=== PATIENT | male | born 1955 | race African-American/Black ===

== ENCOUNTER → 2016-11-22 | Outpatient (CLI) | payer MEDICARE, MEDICAID ==
[~2016-11-22] MED LIST: AMLO10TA4 PO; ASPI-1159 PO; CALC667C4 PO; CALCIUM; CLON0.2T PO; COLC0.6T66 PO; DOCU-138 PO; HYDR-4135 PO; LISI40TA4 PO; MELO-106 PO; METO25TA6 PO; METO50TA5 PO; NEPVIT PO
== END | disposition home or self-care (01) ==
LOC: RAD 13:23
PROVIDERS: ATTEND Internal Medicine Nephrology
DX: J18.9 Pneumonia, unspecified organism (principal)
CPT/HCPCS: 71010

== ENCOUNTER 2018-06-02 13:31 | Inpatient (IN) | payer MEDICARE, MEDICAID ==
[~2018-06-02] VITALS: Ht 185.4 cm; Wt 117.9 kg
[~2018-06-02 13:31] MED LIST changes: +METO-539 PO; -METO50TA5 PO
[2018-06-02] MEDS ORDERED: ALBUTEROL (0.083%) 2.5MG/3ML NEB HHN STA (16:06)
[2018-06-02] MEDS ORDERED: IPRATROPIUM BROMIDE (0.02%) 0.5MG/2.5ML NEB HHN STA (16:06)
[2018-06-02] MEDS ORDERED: METHYLPREDNISOLONE SOD SUCC 125 MG/2 ML VIAL IV STA (16:06)
[2018-06-02] MEDS ORDERED: MAGNESIUM 2 G PREMIX 50 ML IV ONE (16:15)
[2018-06-02 16:29] LABS: HEMATOCRIT. 32.7 % (42.0-52.0); HEMOGLOBIN. 10.6 g/dL (14.0-18.0); MEAN CORPUSCULAR HEMOGLOBIN 28.7 pg (28.0-32.0); MEAN CORPUSCULAR VOLUME 88.4 fL (80.0-94.0); MEAN PLATELET VOLUME 7.4 fl (7.4-10.4); PLATELET 211 x1000/uL (130-400); RED CELL DISTRIBUTION WIDTH 18.6 % (11.6-14.6)
[2018-06-02 16:33] LABS: PROTHROMBIN TIME 10.7 sec (9.6-11.0)
[2018-06-02 16:34] LABS: CHLORIDE 104 mEq/L (98-107)
[2018-06-02 16:52] LABS: PLATELET ESTIMATE NORMAL
[2018-06-02 21:24] LABS: CLARITY URINE CLEAR (CLEAR); COLOR URINE YELLOW (YELLOW); KETONES URINE NEGATIVE (NEGATIVE); LEUKOCYTE ESTERASE URINE NEGATIVE (NEGATIVE); NITRITE URINE NEGATIVE (NEGATIVE); OCCULT BLOOD URINE NEGATIVE (NEGATIVE); PH URINE 6.5 (4.5-8.0); PROTEIN URINE 3+ (NEGATIVE); SPECIFIC GRAVITY URINE 1.017 (1.005-1.030)
[2018-06-02] MEDS ORDERED: ENOXAPARIN 40MG/0.4ML SYR SUBCUT SCH (22:30)
[2018-06-02] MEDS ORDERED: ONDANSETRON HCL 4MG/2ML INJ IV PRN (22:30)
[2018-06-02] MEDS ORDERED: LISINOPRIL 40MG TABLET PO SCH (22:30)
[2018-06-02] MEDS ORDERED: HYDROCODONE/ACETAMINOPHEN 5/325MG TABLET PO PRN (22:30)
[2018-06-02] MEDS ORDERED: ZOLPIDEM TARTRATE 5MG TABLET PO PRN (22:30)
[2018-06-02] MEDS ORDERED: ACETAMINOPHEN 325MG TABLET PO PRN (22:30)
[2018-06-03 00:45] VITALS: BP 157/98
[2018-06-03] MEDS ORDERED: SODIUM CHLORIDE 0.9% 1,000 ML IV SCH (00:53)
[2018-06-03 02:00] VITALS: BP 157/98
[2018-06-03] MEDS: METHYLPREDNISOLONE SOD SUCC 125 MG/2 ML VIAL IV SCH ×4 (02:17→20:34)
[2018-06-03] MEDS: CEFTRIAXONE 1 G PREMIX 50 ML IV SCH (02:17)
[2018-06-03] MEDS: IPRATROPIUM/ALBUTEROL 0.5-3(2.5)MG/3ML NEB INH PRN (02:19)
[2018-06-03] MEDS: AZITHROMYCIN 500 MG in DEXT 5% WATER 250 ML IV SCH (03:01)
[2018-06-03 04:00] VITALS: BP 169/96
[2018-06-03] MEDS ORDERED: CLON0.1T PO (04:57)
[2018-06-03] MEDS ORDERED: LEFL20TA17 PO (04:57)
[2018-06-03] MEDS ORDERED: CHOL200074 PO (04:57)
[2018-06-03] MEDS ORDERED: METO25TA6 PO (04:57)
[2018-06-03] MEDS ORDERED: FOLI0.8T42 PO (04:57)
[2018-06-03] MEDS ORDERED: SODI650T PO (04:57)
[2018-06-03] MEDS ORDERED: LOSA50TA20 PO (04:57)
[2018-06-03] MEDS ORDERED: PRED5TAB PO (04:57)
[2018-06-03 08:00] VITALS: BP 151/86
[2018-06-03 08:38] LABS: *AMPHETAMINES SCREEN URINE NEGATIVE (NEGATIVE); *BARBITURATES SCREEN URINE NEGATIVE (NEGATIVE); *BENZODIAZEPINES SCREEN URINE NEGATIVE (NEGATIVE); *COCAINE SCREEN URINE NEGATIVE (NEGATIVE); METHADONE URINE SCREEN NEGATIVE (NEGATIVE); OPIATES URINE SCREEN PRESUMTIVE POSITIVE (NEGATIVE)
[2018-06-03 08:39] LABS: CANNABINOID URINE SCREEN NEGATIVE (NEGATIVE); PHENCYCLIDINE URINE SCREEN NEGATIVE (NEGATIVE)
[2018-06-03] MEDS: FOLIC ACID/VITAMIN B COMP W-C TABLET PO SCH (08:41)
[2018-06-03] MEDS: COLCHICINE 0.6MG TABLET PO SCH (08:41)
[2018-06-03] MEDS: ASPIRIN 81MG EC TABLET PO SCH (08:41)
[2018-06-03] MEDS: THIAMINE HCL 100MG TABLET PO SCH (08:41)
[2018-06-03] MEDS: AMLODIPINE 10MG TABLET PO SCH (08:42)
[2018-06-03] MEDS: FOLIC ACID 1MG TABLET PO SCH (08:42)
[2018-06-03] MEDS ORDERED: ENOXAPARIN 40MG/0.4ML SYR SUBCUT SCH (09:00)
[2018-06-03] MEDS ORDERED: AMLODIPINE 10MG TABLET PO SCH (09:00)
[2018-06-03 13:10] LABS: CHLORIDE 99 mEq/L (98-107)
[2018-06-03] MEDS: LEFLUNOMIDE 20MG TABLET PO SCH (15:55)
[2018-06-03 15:58] VITALS: BP 160/91
[2018-06-03] MEDS ORDERED: LISINOPRIL 40MG TABLET PO SCH (18:00)
[2018-06-03 20:00] VITALS: BP 154/84
[2018-06-03] MEDS: CLONIDINE 0.1MG TABLET PO SCH (20:34)
[2018-06-03] MEDS ORDERED: GUAIFENESIN/CODEINE 100-10MG/5ML UDC PO PRN (23:45)
[2018-06-04] VITALS: BP 160/94
[2018-06-04] MEDS: IPRATROPIUM/ALBUTEROL 0.5-3(2.5)MG/3ML NEB INH PRN (01:17)
[2018-06-04] MEDS: CEFTRIAXONE 1 G PREMIX 50 ML IV SCH (01:20)
[2018-06-04] MEDS: METHYLPREDNISOLONE SOD SUCC 125 MG/2 ML VIAL IV SCH ×3 (01:20→14:51)
[2018-06-04] MEDS: AZITHROMYCIN 500 MG in DEXT 5% WATER 250 ML IV SCH (02:04)
[2018-06-04 06:02] LABS: HEMATOCRIT. 30.8 % (42.0-52.0); HEMOGLOBIN. 9.9 g/dL (14.0-18.0); MEAN CORPUSCULAR HEMOGLOBIN 28.5 pg (28.0-32.0); MEAN CORPUSCULAR VOLUME 88.7 fL (80.0-94.0); MEAN PLATELET VOLUME 7.9 fl (7.4-10.4); PLATELET 229 x1000/uL (130-400); RED BLOOD CELL COUNT 3.47 mill/uL (4.7-6.1); RED CELL DISTRIBUTION WIDTH 18.5 % (11.6-14.6)
[2018-06-04 06:53] LABS: PHOSPHORUS 4.1 mg/dL (2.5-4.9)
[2018-06-04 07:48] VITALS: BP 169/99
[2018-06-04] MEDS: LEFLUNOMIDE 20MG TABLET PO SCH (08:11)
[2018-06-04] MEDS: CLONIDINE 0.1MG TABLET PO SCH (08:12)
[2018-06-04] MEDS: FOLIC ACID/VITAMIN B COMP W-C TABLET PO SCH (08:13)
[2018-06-04] MEDS: AMLODIPINE 10MG TABLET PO SCH (08:13)
[2018-06-04] MEDS: THIAMINE HCL 100MG TABLET PO SCH (08:13)
[2018-06-04] MEDS: FOLIC ACID 1MG TABLET PO SCH (08:14)
[2018-06-04] MEDS: ASPIRIN 81MG EC TABLET PO SCH (08:14)
[2018-06-04] MEDS: COLCHICINE 0.6MG TABLET PO SCH (08:14)
[2018-06-04] MEDS ORDERED: ENOXAPARIN 30MG/0.3ML SYR SUBCUT SCH (09:00)
[2018-06-04 12:30] VITALS: BP 180/103
[2018-06-04] MEDS ORDERED: CLONIDINE 0.1MG TABLET PO PRN (13:15)
[2018-06-04] MEDS ORDERED: LACTULOSE 20G/30ML UDC PO SCH (14:00)
[2018-06-04] MEDS ORDERED: MAGNESIUM/ALUMINUM HYDROXIDE/SIMETHICONE 30ML UDC PO PRN (15:30)
[2018-06-04] MEDS ORDERED: DEXTROSE 50% WATER 50ML SYRINGE IV PRN ×2 (15:45)
[2018-06-04] MEDS ORDERED: METOPROLOL TARTRATE PO SCH (16:30)
[2018-06-04] MEDS ORDERED: LOSARTAN POTASSIUM PO SCH (16:30)
[2018-06-04] MEDS ORDERED: BLOOD SUGAR DIAGNOSTIC STRIP TEST SCH (16:45)
[2018-06-04 16:58] LABS: PLATELET ESTIMATE NORMAL
[2018-06-04] MEDS ORDERED: CLONIDINE 0.2MG TABLET PO SCH (17:00)
[2018-06-04] MEDS ORDERED: INSULIN LISPRO 100 UNITS/ML SUBCUT SCH (17:15)
[2018-06-04 17:30] VITALS: BP 150/85
[2018-06-04] MEDS ORDERED: SODIUM BICARBONATE 650 MG TABLET PO SCH (18:00)
[2018-06-04] MEDS ORDERED: IPRATROPIUM/ALBUTEROL 0.5-3(2.5)MG/3ML NEB HHN SCH (18:00)
[2018-06-04] MEDS ORDERED: GUAIFENESIN 600MG ER TABLET PO SCH (21:00)
[2018-06-04] MEDS ORDERED: METOPROLOL TARTRATE 25MG TABLET PO SCH ×2 (21:00)
[2018-06-04] MEDS ORDERED: HYDRALAZINE HCL 50MG TABLET PO SCH (22:00)
[2018-06-04] MEDS ORDERED: INSULIN GLARGINE UD 100 UNITS/ML SYR SUBCUT SCH (22:00)
[2018-06-05] MEDS ORDERED: PREDNISONE 5MG TABLET PO SCH (09:00)
[2018-06-05] MEDS ORDERED: PANTOPRAZOLE SODIUM 40 MG/VIAL IV SCH (09:00)
[2018-06-05] MEDS ORDERED: LOSARTAN POTASSIUM 50 MG TABLET PO SCH (18:00)
== END 2018-06-04 18:00 | disposition home or self-care (01) | DRG 189 ==
LOC: ER 13:31 → 5WST 16:56 → EDBEDREQ 16:58 → EDBEDREQTM 16:58 → ENRESERV 22:26
PROVIDERS: ADMIT Internal Medicine Nephrology; ATTEND Internal Medicine Nephrology
DX: J96.00 Acute respiratory failure, unspecified whether with hypoxia or hypercapnia (principal); J44.1 Chronic obstructive pulmonary disease with (acute) exacerbation; Z94.0 Kidney transplant status; I13.0 Hypertensive heart and chronic kidney disease with heart failure and stage 1 through stage 4 chronic kidney disease, or unspecified chronic kidney disease; I50.40 Unspecified combined systolic (congestive) and diastolic (congestive) heart failure; D64.9 Anemia, unspecified; Z87.891 Personal history of nicotine dependence; N18.9 Chronic kidney disease, unspecified; R73.9 Hyperglycemia, unspecified; T38.0X5A Adverse effect of glucocorticoids and synthetic analogues, initial encounter; Y92.89 Other specified places as the place of occurrence of the external cause; R74.0 Nonspecific elevation of levels of transaminase and lactic acid dehydrogenase [LDH]; Z82.49 Family history of ischemic heart disease and other diseases of the circulatory system
CPT/HCPCS: 36415; 71045; 80048; 80305; 82962; 83036; 83605; 83735; 83880; 84100; 84484; 87804; 93005; 93306; 94640; 96365; 96366; 99285; J0456; J0696; J1650; J2930; J3475; J7060; J7611; J7620

== ENCOUNTER 2018-10-04 13:35 | Inpatient (IN) | payer MEDICARE, MEDICAID ==
[~2018-10-04] VITALS: Ht 182.9 cm; Wt 133.8 kg
[~2018-10-04 13:35] MED LIST changes: -ASPI-1159 PO; +ASPI-1393 PO; -CALC667C4 PO; -CALCIUM; +CHOL200074 PO; +CLON0.1T PO; -CLON0.2T PO; -DOCU-138 PO; +FOLI0.8T42 PO; -HYDR-4135 PO; +LEFL20TA17 PO; +LOSA50TA41 PO; -MELO-106 PO; -METO-539 PO; +PRED5TAB PO; +SODI650T PO
[2018-10-04] MEDS ORDERED: ASPIRIN 81MG TABLET PO ONE (16:00)
[2018-10-04 16:38] LABS: HEMATOCRIT. 35.2 % (42.0-52.0); HEMOGLOBIN. 11.5 g/dL (14.0-18.0); MEAN CORPUSCULAR HEMOGLOBIN 30.3 pg (28.0-32.0); MEAN CORPUSCULAR VOLUME 92.8 fL (80.0-94.0); MEAN PLATELET VOLUME 7.9 fl (7.4-10.4); PLATELET 113 x1000/uL (130-400); RED BLOOD CELL COUNT 3.79 mill/uL (4.7-6.1); RED CELL DISTRIBUTION WIDTH 20.2 % (11.6-14.6)
[2018-10-04 16:43] LABS: PARTIAL THROMBOPLASTIN TIME 25.7 sec (23.4-31.0); PROTHROMBIN TIME 10.5 sec (9.6-11.0)
[2018-10-04 16:44] LABS: CHLORIDE 103 mEq/L (98-107)
[2018-10-04] MEDS ORDERED: MORPHINE SULFATE 4 MG/ML CPJ (NOT FOR IM USE) IV ONE (16:45)
[2018-10-04] MEDS ORDERED: ONDANSETRON HCL 4MG/2ML INJ IV ONE (16:45)
[2018-10-04 17:58] LABS: NUCLEATED RED BLOOD CELLS 2 /100 WBC; PLATELET ESTIMATE SLIGHTLY DECREASED
[2018-10-04 20:30] LABS: CLARITY URINE CLEAR (CLEAR); COLOR URINE YELLOW (YELLOW); KETONES URINE NEGATIVE (NEGATIVE); LEUKOCYTE ESTERASE URINE NEGATIVE (NEGATIVE); NITRITE URINE NEGATIVE (NEGATIVE); OCCULT BLOOD URINE NEGATIVE (NEGATIVE); PROTEIN URINE 2+ (NEGATIVE); UROBILINOGEN URINE 0.2 E.U./dL (0.2-1.0)
[2018-10-04 23:00] VITALS: BP 173/92
[2018-10-04] MEDS ORDERED: ONDANSETRON HCL 4MG/2ML INJ IV PRN (23:00)
[2018-10-04] MEDS ORDERED: HYDROCODONE/ACETAMINOPHEN 5/325MG TABLET PO PRN (23:00)
[2018-10-04 23:04] VITALS: BP 173/92
[2018-10-05] VITALS (8 sets, daily range): BP systolic 127–164; BP diastolic 81–99
[2018-10-05] MEDS: THIAMINE HCL 100MG TABLET PO SCH ×2 (00:21→10:18)
[2018-10-05] MEDS: AMLODIPINE 10MG TABLET PO SCH ×2 (00:22→08:59)
[2018-10-05] MEDS: SODIUM CHLORIDE 0.9% 1,000 ML IV SCH ×3 (00:23→18:33)
[2018-10-05] MEDS: FOLIC ACID/VITAMIN B COMP W-C TABLET PO SCH (08:58)
[2018-10-05] MEDS: CLONIDINE 0.1MG TABLET PO SCH ×2 (08:59→18:34)
[2018-10-05] MEDS: LOSARTAN POTASSIUM 100 MG TABLET PO SCH (08:59)
[2018-10-05] MEDS: PREDNISONE 5MG TABLET PO SCH (08:59)
[2018-10-05] MEDS ORDERED: LISINOPRIL 40MG TABLET PO SCH ×2 (09:00→18:00)
[2018-10-05] MEDS: ENOXAPARIN 40MG/0.4ML SYR SUBCUT SCH (09:00)
[2018-10-05] MEDS: LEFLUNOMIDE 20MG TABLET PO SCH (09:00)
[2018-10-05] MEDS: MORPHINE SULFATE 4 MG/ML CPJ (NOT FOR IM USE) IV PRN ×2 (16:01→21:27)
[2018-10-05 16:32] LABS: *AMPHETAMINES SCREEN URINE NEGATIVE (NEGATIVE); *BARBITURATES SCREEN URINE NEGATIVE (NEGATIVE); *BENZODIAZEPINES SCREEN URINE NEGATIVE (NEGATIVE); *COCAINE SCREEN URINE NEGATIVE (NEGATIVE); METHADONE URINE SCREEN NEGATIVE (NEGATIVE)
[2018-10-05 16:37] LABS: OPIATES URINE SCREEN PRESUMTIVE POSITIVE (NEGATIVE); PHENCYCLIDINE URINE SCREEN NEGATIVE (NEGATIVE)
[2018-10-05 16:38] LABS: CANNABINOID URINE SCREEN NEGATIVE (NEGATIVE)
[2018-10-05] MEDS: BACLOFEN 10MG TABLET PO SCH (18:34)
[2018-10-05] MEDS ORDERED: IOHEXOL-350 100 ML BOTTLE ONE (19:08)
[2018-10-05 20:51] LABS: BASOPHILS % 0.5 % (0.0-2.0); EOSINOPHILS % 0.3 % (0.0-5.0); HEMATOCRIT. 33.3 % (42.0-52.0); LYMPHOCYTES % 8.5 % (20.0-50.0); MEAN CORPUSCULAR VOLUME 91.1 fL (80.0-94.0); MEAN PLATELET VOLUME 8.1 fl (7.4-10.4); NEUTROPHILS % 80.7 % (40.0-76.0); PLATELET 114 x1000/uL (130-400); RED BLOOD CELL COUNT 3.66 mill/uL (4.7-6.1); RED CELL DISTRIBUTION WIDTH 19.4 % (11.6-14.6)
[2018-10-05] MEDS: DOCUSATE SODIUM 100MG CAPSULE PO SCH (21:10)
[2018-10-05 21:17] LABS: CHLORIDE 103 mEq/L (98-107)
[2018-10-05 21:22] LABS: AMYLASE 130 IU/L (25-115)
[2018-10-06] VITALS (8 sets, daily range): BP systolic 141–180; BP diastolic 82–100
[2018-10-06] MEDS: SODIUM CHLORIDE 0.9% 1,000 ML IV SCH ×2 (00:24→11:36)
[2018-10-06] MEDS: BACLOFEN 10MG TABLET PO SCH ×3 (02:19→17:31)
[2018-10-06] MEDS: LACTULOSE 20G/30ML UDC PO SCH ×3 (05:09→21:26)
[2018-10-06 06:42] LABS: BASOPHILS % 0.6 % (0.0-2.0); EOSINOPHILS % 0.9 % (0.0-5.0); HEMATOCRIT. 32.1 % (42.0-52.0); HEMOGLOBIN. 10.8 g/dL (14.0-18.0); LYMPHOCYTES % 13.7 % (20.0-50.0); MEAN CORPUSCULAR HEMOGLOBIN 30.5 pg (28.0-32.0); MEAN CORPUSCULAR VOLUME 90.7 fL (80.0-94.0); MEAN PLATELET VOLUME 7.9 fl (7.4-10.4); NEUTROPHILS % 71.8 % (40.0-76.0); PLATELET 107 x1000/uL (130-400); RED BLOOD CELL COUNT 3.54 mill/uL (4.7-6.1); RED CELL DISTRIBUTION WIDTH 19.7 % (11.6-14.6)
[2018-10-06] MEDS: FOLIC ACID/VITAMIN B COMP W-C TABLET PO SCH (08:42)
[2018-10-06] MEDS: ENOXAPARIN 40MG/0.4ML SYR SUBCUT SCH (08:43)
[2018-10-06] MEDS: AMLODIPINE 10MG TABLET PO SCH (08:43)
[2018-10-06] MEDS: PREDNISONE 5MG TABLET PO SCH (08:43)
[2018-10-06] MEDS: CLONIDINE 0.1MG TABLET PO SCH ×2 (08:43→17:31)
[2018-10-06] MEDS: DOCUSATE SODIUM 100MG CAPSULE PO SCH ×2 (08:43→17:31)
[2018-10-06] MEDS: THIAMINE HCL 100MG TABLET PO SCH (08:48)
[2018-10-06] MEDS: LOSARTAN POTASSIUM 100 MG TABLET PO SCH (08:48)
[2018-10-06] MEDS: MORPHINE SULFATE 4 MG/ML CPJ (NOT FOR IM USE) IV PRN ×2 (09:28→18:55)
[2018-10-06] MEDS: LEFLUNOMIDE 20MG TABLET PO SCH (10:30)
[2018-10-06] MEDS: LIDOCAINE 5% PATCH TOP SCH (21:24)
[2018-10-06] MEDS ORDERED: GABAPENTIN 100MG CAPSULE PO SCH (22:00)
[2018-10-07] VITALS (10 sets, daily range): BP systolic 135–180; BP diastolic 79–111
[2018-10-07] MEDS: MORPHINE SULFATE 4 MG/ML CPJ (NOT FOR IM USE) IV PRN ×2 (01:05→15:45)
[2018-10-07] MEDS: GABAPENTIN 100MG CAPSULE PO SCH ×3 (05:22→20:56)
[2018-10-07] MEDS: ACYCLOVIR 200MG CAPSULE PO SCH ×3 (05:26→20:57)
[2018-10-07] MEDS ORDERED: ONDANSETRON HCL 4MG/2ML INJ IV PRN (06:00)
[2018-10-07] MEDS: AMLODIPINE 10MG TABLET PO SCH ×2 (06:37→09:00)
[2018-10-07 08:00] LABS: BASOPHILS % 0.6 % (0.0-2.0); EOSINOPHILS % 1.1 % (0.0-5.0); HEMATOCRIT. 34.1 % (42.0-52.0); HEMOGLOBIN. 11.2 g/dL (14.0-18.0); MEAN CORPUSCULAR HEMOGLOBIN 30.1 pg (28.0-32.0); MEAN CORPUSCULAR VOLUME 91.5 fL (80.0-94.0); MEAN PLATELET VOLUME 8.1 fl (7.4-10.4); MONOCYTES % 12.4 % (2.0-8.0); NEUTROPHILS % 72.9 % (40.0-76.0); PLATELET 114 x1000/uL (130-400); RED BLOOD CELL COUNT 3.72 mill/uL (4.7-6.1); RED CELL DISTRIBUTION WIDTH 20.1 % (11.6-14.6)
[2018-10-07] MEDS: LOSARTAN POTASSIUM 100 MG TABLET PO SCH (08:28)
[2018-10-07] MEDS: FOLIC ACID/VITAMIN B COMP W-C TABLET PO SCH (08:28)
[2018-10-07] MEDS: PREDNISONE 5MG TABLET PO SCH (08:28)
[2018-10-07] MEDS: DOCUSATE SODIUM 100MG CAPSULE PO SCH ×2 (08:28→17:44)
[2018-10-07] MEDS: CLONIDINE 0.1MG TABLET PO SCH ×2 (08:29→17:48)
[2018-10-07] MEDS: LEFLUNOMIDE 20MG TABLET PO SCH (08:37)
[2018-10-07] MEDS: LIDOCAINE 5% PATCH TOP SCH (08:42)
[2018-10-07] MEDS ORDERED: METOPROLOL TARTRATE 25MG TABLET PO SCH (09:00)
[2018-10-07] MEDS ORDERED: CLONIDINE 0.1MG TABLET PO PRN (10:45)
[2018-10-07] MEDS: FUROSEMIDE 40MG/4ML VIAL IVP SCH (12:01)
[2018-10-07] MEDS: METOPROLOL TARTRATE 50MG TABLET PO SCH (20:57)
[2018-10-08] VITALS (12 sets, daily range): BP systolic 129–169; BP diastolic 74–105
[2018-10-08] MEDS: GABAPENTIN 100MG CAPSULE PO SCH ×3 (05:27→21:12)
[2018-10-08] MEDS: ACYCLOVIR 200MG CAPSULE PO SCH ×3 (05:27→21:11)
[2018-10-08] MEDS: MORPHINE SULFATE 4 MG/ML CPJ (NOT FOR IM USE) IV PRN (05:28)
[2018-10-08] MEDS: LIDOCAINE 5% PATCH TOP SCH (09:21)
[2018-10-08] MEDS: FUROSEMIDE 40MG/4ML VIAL IVP SCH (09:21)
[2018-10-08] MEDS: LEFLUNOMIDE 20MG TABLET PO SCH (09:21)
[2018-10-08] MEDS: PREDNISONE 5MG TABLET PO SCH (09:21)
[2018-10-08] MEDS: FOLIC ACID/VITAMIN B COMP W-C TABLET PO SCH (09:21)
[2018-10-08] MEDS: AMLODIPINE 10MG TABLET PO SCH (09:22)
[2018-10-08] MEDS: CLONIDINE 0.1MG TABLET PO SCH ×2 (09:22→17:44)
[2018-10-08] MEDS: LOSARTAN POTASSIUM 100 MG TABLET PO SCH (09:22)
[2018-10-08] MEDS: DOCUSATE SODIUM 100MG CAPSULE PO SCH ×2 (09:22→17:44)
[2018-10-08] MEDS: METOPROLOL TARTRATE 50MG TABLET PO SCH ×2 (09:22→20:32)
[2018-10-09] VITALS (11 sets, daily range): BP systolic 115–150; BP diastolic 70–100
[2018-10-09] MEDS: ACYCLOVIR 200MG CAPSULE PO SCH ×2 (05:48→13:44)
[2018-10-09] MEDS: GABAPENTIN 100MG CAPSULE PO SCH ×2 (05:48→13:45)
[2018-10-09 06:52] LABS: BASOPHILS % 1.1 % (0.0-2.0); EOSINOPHILS % 0.8 % (0.0-5.0); HEMATOCRIT. 35.6 % (42.0-52.0); LYMPHOCYTES % 13.2 % (20.0-50.0); MEAN CORPUSCULAR HEMOGLOBIN 30.5 pg (28.0-32.0); MEAN CORPUSCULAR VOLUME 90.4 fL (80.0-94.0); MEAN PLATELET VOLUME 7.6 fl (7.4-10.4); MONOCYTES % 12.2 % (2.0-8.0); NEUTROPHILS % 72.7 % (40.0-76.0); PLATELET 120 x1000/uL (130-400); RED BLOOD CELL COUNT 3.94 mill/uL (4.7-6.1); RED CELL DISTRIBUTION WIDTH 18.9 % (11.6-14.6)
[2018-10-09] MEDS: FOLIC ACID/VITAMIN B COMP W-C TABLET PO SCH (08:19)
[2018-10-09] MEDS: METOPROLOL TARTRATE 50MG TABLET PO SCH (08:19)
[2018-10-09] MEDS: LOSARTAN POTASSIUM 100 MG TABLET PO SCH (08:20)
[2018-10-09] MEDS: AMLODIPINE 10MG TABLET PO SCH (08:20)
[2018-10-09] MEDS: DOCUSATE SODIUM 100MG CAPSULE PO SCH ×2 (08:20→17:52)
[2018-10-09] MEDS: CLONIDINE 0.1MG TABLET PO SCH ×2 (08:20→17:53)
[2018-10-09] MEDS: PREDNISONE 5MG TABLET PO SCH (08:20)
[2018-10-09] MEDS: FUROSEMIDE 40MG/4ML VIAL IVP SCH (08:20)
[2018-10-09] MEDS: LIDOCAINE 5% PATCH TOP SCH (08:21)
[2018-10-09] MEDS: LEFLUNOMIDE 20MG TABLET PO SCH (08:21)
[2018-10-09] MEDS: MORPHINE SULFATE 4 MG/ML CPJ (NOT FOR IM USE) IV PRN (09:14)
[2018-10-09] MEDS ORDERED: HYDROCODONE/ACETAMINOPHEN 5/325MG TABLET PO PRN (12:45)
== END 2018-10-09 09:00 | DRG 551 ==
LOC: ER 14:00 → 5WST 18:32 → EDBEDREQ 18:34 → ENRESERV 21:43 → 5EST 10-05 17:45
PROVIDERS: ADMIT Internal Medicine Nephrology; ATTEND Internal Medicine Nephrology
DX: M48.061 Spinal stenosis, lumbar region without neurogenic claudication (principal); N17.0 Acute kidney failure with tubular necrosis; Z94.0 Kidney transplant status; G82.20 Paraplegia, unspecified; Z68.41 Body mass index [BMI] 40.0-44.9, adult; N18.3 Chronic kidney disease, stage 3 (moderate); E66.01 Morbid (severe) obesity due to excess calories; D69.6 Thrombocytopenia, unspecified; G89.4 Chronic pain syndrome; I13.10 Hypertensive heart and chronic kidney disease without heart failure, with stage 1 through stage 4 chronic kidney disease, or unspecified chronic kidney disease; L60.3 Nail dystrophy; M51.16 Intervertebral disc disorders with radiculopathy, lumbar region; R26.9 Unspecified abnormalities of gait and mobility; Z82.49 Family history of ischemic heart disease and other diseases of the circulatory system
CPT/HCPCS: 36415; 71045; 71275; 72146; 72148; 74018; 80048; 80305; 81003; 82150; 83735; 83880; 84484; 93005; 93306; 93970; 96374; 97162; 97166; 99285; J1650; J1940; J2270; J2405; J7030; J7512; Q9967

== ENCOUNTER 2018-10-09 19:00 | Inpatient (IN) | payer MEDICARE, MEDICAID ==
[~2018-10-09] VITALS: Ht 128.9 cm; Wt 133.8 kg
[2018-10-09 19:00] VITALS: BP 137/90
[2018-10-09 20:00] VITALS: BP 137/90
[2018-10-09] MEDS ORDERED: CLONIDINE 0.1MG TABLET PO PRN (21:00)
[2018-10-09] MEDS ORDERED: ONDANSETRON HCL 4MG/2ML INJ IV PRN (21:00)
[2018-10-09] MEDS ORDERED: ACYCLOVIR 200MG CAPSULE PO SCH (22:00)
[2018-10-09] MEDS: ACYCLOVIR 400 MG TABLET PO SCH (22:22)
[2018-10-09] MEDS: GABAPENTIN 100MG CAPSULE PO SCH (22:22)
[2018-10-09] MEDS: METOPROLOL TARTRATE 50MG TABLET PO SCH (22:23)
[2018-10-09] MEDS: HYDROCODONE/ACETAMINOPHEN 5/325MG TABLET PO PRN (22:23)
[2018-10-10] MEDS: ACYCLOVIR 400 MG TABLET PO SCH ×3 (05:19→22:32)
[2018-10-10] MEDS: GABAPENTIN 100MG CAPSULE PO SCH ×3 (05:19→21:41)
[2018-10-10] MEDS: HYDROCODONE/ACETAMINOPHEN 5/325MG TABLET PO PRN ×2 (05:24→22:33)
[2018-10-10 08:00] LABS: BASOPHILS % 0.8 % (0.0-2.0); HEMOGLOBIN. 11.8 g/dL (14.0-18.0); LYMPHOCYTES % 13.8 % (20.0-50.0); MEAN CORPUSCULAR HEMOGLOBIN 29.9 pg (28.0-32.0); MEAN CORPUSCULAR VOLUME 90.9 fL (80.0-94.0); MEAN PLATELET VOLUME 7.7 fl (7.4-10.4); NEUTROPHILS % 73.4 % (40.0-76.0); PLATELET 126 x1000/uL (130-400); RED BLOOD CELL COUNT 3.96 mill/uL (4.7-6.1); RED CELL DISTRIBUTION WIDTH 19.8 % (11.6-14.6)
[2018-10-10 08:01] LABS: CHLORIDE 101 mEq/L (98-107)
[2018-10-10] MEDS: LEFLUNOMIDE 20MG TABLET PO SCH (08:10)
[2018-10-10] MEDS: LOSARTAN POTASSIUM 100 MG TABLET PO SCH (08:10)
[2018-10-10] MEDS: CLONIDINE 0.1MG TABLET PO SCH ×2 (08:11→16:21)
[2018-10-10] MEDS: FUROSEMIDE 40MG TABLET PO SCH (08:11)
[2018-10-10] MEDS: AMLODIPINE 10MG TABLET PO SCH (08:12)
[2018-10-10] MEDS: DOCUSATE SODIUM 100MG CAPSULE PO SCH ×2 (08:12→16:26)
[2018-10-10] MEDS: FOLIC ACID/VITAMIN B COMP W-C TABLET PO SCH (08:12)
[2018-10-10] MEDS: METOPROLOL TARTRATE 50MG TABLET PO SCH ×2 (08:13→21:42)
[2018-10-10] MEDS: PREDNISONE 5MG TABLET PO SCH (08:13)
[2018-10-10] MEDS: LIDOCAINE 5% PATCH TOP SCH (08:13)
[2018-10-10 08:28] VITALS: BP 178/100
[2018-10-10] MEDS ORDERED: FUROSEMIDE 40MG/4ML VIAL IVP SCH (09:00)
[2018-10-10 09:42] VITALS: BP 136/79
[2018-10-10] MEDS: LACTULOSE 20G/30ML UDC PO SCH ×2 (10:45→14:19)
[2018-10-10 20:00] VITALS: BP 138/81
[2018-10-10] MEDS: POLYETHYLENE GLYCOL 3350 (17GM) 1 DOSE PACK PO SCH (21:00)
[2018-10-10] MEDS: LACTULOSE 20G/30ML UDC PO PRN (21:42)
[2018-10-11] MEDS: HYDROCODONE/ACETAMINOPHEN 5/325MG TABLET PO PRN (02:51)
[2018-10-11] MEDS: GABAPENTIN 100MG CAPSULE PO SCH ×3 (06:17→21:15)
[2018-10-11] MEDS: ACYCLOVIR 400 MG TABLET PO SCH ×3 (06:19→21:30)
[2018-10-11 07:49] VITALS: BP 161/93
[2018-10-11] MEDS: LEFLUNOMIDE 20MG TABLET PO SCH (08:14)
[2018-10-11] MEDS: METOPROLOL TARTRATE 50MG TABLET PO SCH ×2 (08:15→21:16)
[2018-10-11] MEDS: FOLIC ACID/VITAMIN B COMP W-C TABLET PO SCH (08:15)
[2018-10-11] MEDS: PREDNISONE 5MG TABLET PO SCH (08:15)
[2018-10-11] MEDS: DOCUSATE SODIUM 100MG CAPSULE PO SCH ×2 (08:15→17:14)
[2018-10-11] MEDS: LOSARTAN POTASSIUM 100 MG TABLET PO SCH (08:15)
[2018-10-11] MEDS: CLONIDINE 0.1MG TABLET PO SCH ×2 (08:15→17:13)
[2018-10-11] MEDS: FUROSEMIDE 40MG TABLET PO SCH (08:16)
[2018-10-11] MEDS: LIDOCAINE 5% PATCH TOP SCH (08:16)
[2018-10-11] MEDS: AMLODIPINE 10MG TABLET PO SCH (08:16)
[2018-10-11] MEDS ORDERED: LIDOCAINE 5% PATCH TOP NR (12:45)
[2018-10-11 20:00] VITALS: BP 149/86
[2018-10-11] MEDS: LACTULOSE 20G/30ML UDC PO PRN (21:15)
[2018-10-11] MEDS: POLYETHYLENE GLYCOL 3350 (17GM) 1 DOSE PACK PO SCH (21:15)
[2018-10-12] MEDS: GABAPENTIN 100MG CAPSULE PO SCH ×3 (05:33→21:22)
[2018-10-12] MEDS: ACYCLOVIR 400 MG TABLET PO SCH ×3 (05:33→21:59)
[2018-10-12 06:29] LABS: BASOPHILS % 0.7 % (0.0-2.0); EOSINOPHILS % 1.3 % (0.0-5.0); HEMATOCRIT. 32.7 % (42.0-52.0); HEMOGLOBIN. 10.9 g/dL (14.0-18.0); LYMPHOCYTES % 10.2 % (20.0-50.0); MEAN CORPUSCULAR HEMOGLOBIN 30.3 pg (28.0-32.0); MEAN CORPUSCULAR VOLUME 91.3 fL (80.0-94.0); MEAN PLATELET VOLUME 7.9 fl (7.4-10.4); MONOCYTES % 12.2 % (2.0-8.0); NEUTROPHILS % 75.6 % (40.0-76.0); PLATELET 136 x1000/uL (130-400); RED BLOOD CELL COUNT 3.58 mill/uL (4.7-6.1); RED CELL DISTRIBUTION WIDTH 19.3 % (11.6-14.6)
[2018-10-12 06:38] LABS: PHOSPHORUS 4.6 mg/dL (2.5-4.9)
[2018-10-12 07:16] LABS: VITAMIN B12 SERUM 1299 pg/mL (211-911)
[2018-10-12 07:19] LABS: FOLIC ACID (FOLATE) SERUM > 20.00 ng/mL (>5.38)
[2018-10-12 07:47] LABS: FERRITIN 2747 ng/mL (22-322)
[2018-10-12 08:00] VITALS: BP 175/95
[2018-10-12] MEDS: LIDOCAINE 5% PATCH TOP SCH (08:05)
[2018-10-12] MEDS: DOCUSATE SODIUM 100MG CAPSULE PO SCH ×2 (08:05→16:31)
[2018-10-12] MEDS: PREDNISONE 5MG TABLET PO SCH (08:05)
[2018-10-12] MEDS: AMLODIPINE 10MG TABLET PO SCH (08:06)
[2018-10-12] MEDS: FOLIC ACID/VITAMIN B COMP W-C TABLET PO SCH (08:06)
[2018-10-12] MEDS: CLONIDINE 0.1MG TABLET PO SCH ×3 (08:06→16:31)
[2018-10-12] MEDS: FUROSEMIDE 40MG TABLET PO SCH (08:06)
[2018-10-12] MEDS: LOSARTAN POTASSIUM 100 MG TABLET PO SCH (08:06)
[2018-10-12] MEDS: METOPROLOL TARTRATE 50MG TABLET PO SCH ×2 (08:07→21:23)
[2018-10-12] MEDS: HYDROCODONE/ACETAMINOPHEN 10/325MG TABLET PO PRN (08:07)
[2018-10-12] MEDS: LEFLUNOMIDE 20MG TABLET PO SCH (08:10)
[2018-10-12 11:31] VITALS: BP 116/73
[2018-10-12 13:38] VITALS: BP 139/76
[2018-10-12 20:00] VITALS: BP 143/86
[2018-10-12] MEDS: POLYETHYLENE GLYCOL 3350 (17GM) 1 DOSE PACK PO SCH (21:22)
[2018-10-12] MEDS: LACTULOSE 20G/30ML UDC PO PRN (21:22)
[2018-10-13] MEDS: GABAPENTIN 100MG CAPSULE PO SCH ×3 (05:40→20:26)
[2018-10-13] MEDS: ACYCLOVIR 400 MG TABLET PO SCH ×3 (05:40→20:26)
[2018-10-13 08:00] VITALS: BP 178/97
[2018-10-13] MEDS: HYDROCODONE/ACETAMINOPHEN 10/325MG TABLET PO PRN (08:38)
[2018-10-13] MEDS: LEFLUNOMIDE 20MG TABLET PO SCH (08:38)
[2018-10-13] MEDS: METOPROLOL TARTRATE 50MG TABLET PO SCH ×2 (08:39→20:27)
[2018-10-13] MEDS: CLONIDINE 0.1MG TABLET PO SCH ×3 (08:39→16:56)
[2018-10-13] MEDS: FOLIC ACID/VITAMIN B COMP W-C TABLET PO SCH (08:39)
[2018-10-13] MEDS: FUROSEMIDE 40MG TABLET PO SCH (08:39)
[2018-10-13] MEDS: LOSARTAN POTASSIUM 100 MG TABLET PO SCH (08:39)
[2018-10-13] MEDS: DOCUSATE SODIUM 100MG CAPSULE PO SCH ×2 (08:40→16:56)
[2018-10-13] MEDS: PREDNISONE 5MG TABLET PO SCH (08:40)
[2018-10-13] MEDS: AMLODIPINE 10MG TABLET PO SCH (08:40)
[2018-10-13] MEDS: LIDOCAINE 5% PATCH TOP SCH (09:39)
[2018-10-13 20:00] VITALS: BP 139/83
[2018-10-13] MEDS: POLYETHYLENE GLYCOL 3350 (17GM) 1 DOSE PACK PO SCH (20:26)
[2018-10-13] MEDS: LACTULOSE 20G/30ML UDC PO PRN (20:26)
[2018-10-14] MEDS: GABAPENTIN 100MG CAPSULE PO SCH ×3 (06:16→22:03)
[2018-10-14 08:00] VITALS: BP 146/88
[2018-10-14] MEDS: LIDOCAINE 5% PATCH TOP SCH (09:14)
[2018-10-14] MEDS: HYDROCODONE/ACETAMINOPHEN 5/325MG TABLET PO PRN (09:15)
[2018-10-14] MEDS: FOLIC ACID/VITAMIN B COMP W-C TABLET PO SCH (09:16)
[2018-10-14] MEDS: PREDNISONE 5MG TABLET PO SCH (09:16)
[2018-10-14] MEDS: FUROSEMIDE 40MG TABLET PO SCH (09:16)
[2018-10-14] MEDS: AMLODIPINE 10MG TABLET PO SCH (09:16)
[2018-10-14] MEDS: METOPROLOL TARTRATE 50MG TABLET PO SCH ×2 (09:16→20:38)
[2018-10-14] MEDS: LOSARTAN POTASSIUM 100 MG TABLET PO SCH (09:16)
[2018-10-14] MEDS: DOCUSATE SODIUM 100MG CAPSULE PO SCH ×2 (09:16→16:48)
[2018-10-14] MEDS: ACYCLOVIR 400 MG TABLET PO SCH ×3 (09:17→22:02)
[2018-10-14] MEDS: LEFLUNOMIDE 20MG TABLET PO SCH (09:17)
[2018-10-14] MEDS: CLONIDINE 0.1MG TABLET PO SCH ×3 (09:23→16:48)
[2018-10-14] MEDS ORDERED: HYDROCODONE/ACETAMINOPHEN 5/325MG TABLET PO PRN (17:00)
[2018-10-14 20:00] VITALS: BP 143/87
[2018-10-14] MEDS: POLYETHYLENE GLYCOL 3350 (17GM) 1 DOSE PACK PO SCH (20:37)
[2018-10-14] MEDS: HYDROCODONE/ACETAMINOPHEN 10/325MG TABLET PO PRN (22:08)
[2018-10-15] MEDS: ACYCLOVIR 400 MG TABLET PO SCH ×3 (05:53→21:32)
[2018-10-15] MEDS: GABAPENTIN 100MG CAPSULE PO SCH ×3 (05:54→21:33)
[2018-10-15 06:55] LABS: BASOPHILS % 0.8 % (0.0-2.0); EOSINOPHILS % 1.3 % (0.0-5.0); HEMOGLOBIN. 11.6 g/dL (14.0-18.0); LYMPHOCYTES % 12.5 % (20.0-50.0); MEAN CORPUSCULAR HEMOGLOBIN 30.4 pg (28.0-32.0); MEAN CORPUSCULAR VOLUME 91.6 fL (80.0-94.0); MEAN PLATELET VOLUME 7.8 fl (7.4-10.4); MONOCYTES % 12.1 % (2.0-8.0); NEUTROPHILS % 73.3 % (40.0-76.0); PLATELET 127 x1000/uL (130-400); RED BLOOD CELL COUNT 3.82 mill/uL (4.7-6.1); RED CELL DISTRIBUTION WIDTH 19.4 % (11.6-14.6)
[2018-10-15 08:00] VITALS: BP 158/87
[2018-10-15] MEDS: LIDOCAINE 5% PATCH TOP SCH (08:59)
[2018-10-15] MEDS: FUROSEMIDE 40MG TABLET PO SCH (09:00)
[2018-10-15] MEDS: DOCUSATE SODIUM 100MG CAPSULE PO SCH ×2 (09:00→16:59)
[2018-10-15] MEDS: CLONIDINE 0.1MG TABLET PO SCH ×3 (09:00→16:59)
[2018-10-15] MEDS: LOSARTAN POTASSIUM 100 MG TABLET PO SCH (09:00)
[2018-10-15] MEDS: PREDNISONE 5MG TABLET PO SCH (09:01)
[2018-10-15] MEDS: AMLODIPINE 10MG TABLET PO SCH (09:01)
[2018-10-15] MEDS: METOPROLOL TARTRATE 50MG TABLET PO SCH ×2 (09:02→21:34)
[2018-10-15] MEDS: FOLIC ACID/VITAMIN B COMP W-C TABLET PO SCH (09:02)
[2018-10-15] MEDS: LEFLUNOMIDE 20MG TABLET PO SCH (09:23)
[2018-10-15] MEDS: HYDROCODONE/ACETAMINOPHEN 10/325MG TABLET PO PRN ×2 (09:24→21:33)
[2018-10-15 20:00] VITALS: BP 139/86
[2018-10-15] MEDS: POLYETHYLENE GLYCOL 3350 (17GM) 1 DOSE PACK PO SCH (21:00)
[2018-10-15] MEDS: LACTULOSE 20G/30ML UDC PO PRN (21:39)
[2018-10-16] MEDS: GABAPENTIN 100MG CAPSULE PO SCH ×3 (06:48→21:31)
[2018-10-16] MEDS: ACYCLOVIR 400 MG TABLET PO SCH ×3 (06:48→21:31)
[2018-10-16] MEDS: HYDROCODONE/ACETAMINOPHEN 10/325MG TABLET PO PRN ×2 (06:52→22:30)
[2018-10-16 07:30] VITALS: BP 140/80
[2018-10-16] MEDS ORDERED: PNEUMOCOCCAL 23-VAL P-SAC VAC 0.5 ML IM ONE (09:00)
[2018-10-16] MEDS: DOCUSATE SODIUM 100MG CAPSULE PO SCH ×2 (11:17→17:25)
[2018-10-16] MEDS: AMLODIPINE 10MG TABLET PO SCH (11:17)
[2018-10-16] MEDS: FOLIC ACID/VITAMIN B COMP W-C TABLET PO SCH (11:17)
[2018-10-16] MEDS: METOPROLOL TARTRATE 50MG TABLET PO SCH ×2 (11:18→21:32)
[2018-10-16] MEDS: PREDNISONE 5MG TABLET PO SCH (11:18)
[2018-10-16] MEDS: LOSARTAN POTASSIUM 100 MG TABLET PO SCH (11:19)
[2018-10-16] MEDS: CLONIDINE 0.1MG TABLET PO SCH ×3 (11:19→17:28)
[2018-10-16] MEDS: LIDOCAINE 5% PATCH TOP SCH (11:22)
[2018-10-16] MEDS: LEFLUNOMIDE 20MG TABLET PO SCH (11:26)
[2018-10-16] MEDS ORDERED: BISACODYL 5MG TABLET PO PRN (13:30)
[2018-10-16] MEDS: FUROSEMIDE 40MG TABLET PO SCH (17:25)
[2018-10-16 19:13] LABS: 25-HYDROXY VITAMIN D3 46 ng/mL (.)
[2018-10-16 20:00] VITALS: BP 147/86
[2018-10-16] MEDS: POLYETHYLENE GLYCOL 3350 (17GM) 1 DOSE PACK PO SCH (21:00)
[2018-10-16] MEDS: LACTULOSE 20G/30ML UDC PO PRN (21:34)
[2018-10-17] MEDS: ACYCLOVIR 400 MG TABLET PO SCH ×2 (06:24→14:06)
[2018-10-17] MEDS: GABAPENTIN 100MG CAPSULE PO SCH ×2 (06:25→14:07)
[2018-10-17] MEDS: FUROSEMIDE 40MG TABLET PO SCH (06:25)
[2018-10-17 08:00] VITALS: BP 140/77
[2018-10-17] MEDS: LEFLUNOMIDE 20MG TABLET PO SCH (09:35)
[2018-10-17] MEDS: FOLIC ACID/VITAMIN B COMP W-C TABLET PO SCH (09:35)
[2018-10-17] MEDS: DOCUSATE SODIUM 100MG CAPSULE PO SCH (09:35)
[2018-10-17] MEDS: PREDNISONE 5MG TABLET PO SCH (09:35)
[2018-10-17] MEDS: LOSARTAN POTASSIUM 100 MG TABLET PO SCH (09:35)
[2018-10-17] MEDS: METOPROLOL TARTRATE 50MG TABLET PO SCH (09:36)
[2018-10-17] MEDS: AMLODIPINE 10MG TABLET PO SCH (09:36)
[2018-10-17] MEDS: LIDOCAINE 5% PATCH TOP SCH (09:37)
[2018-10-17] MEDS: CLONIDINE 0.1MG TABLET PO SCH ×2 (09:37→12:23)
[2018-10-17] MEDS: HYDROCODONE/ACETAMINOPHEN 10/325MG TABLET PO PRN (12:28)
[2018-10-17 13:37] VITALS: BP 115/65
== END 2018-10-17 15:35 | disposition home or self-care (01) | DRG 52 ==
PROVIDERS: ADMIT Physical Medicine & Rehabilitation Spinal Cord Injury Medicine; ATTEND Internal Medicine Nephrology
DX: G82.20 Paraplegia, unspecified (principal); N17.9 Acute kidney failure, unspecified; T86.19 Other complication of kidney transplant; Z68.45 Body mass index [BMI] 70 or greater, adult; D69.6 Thrombocytopenia, unspecified; E66.01 Morbid (severe) obesity due to excess calories; M48.061 Spinal stenosis, lumbar region without neurogenic claudication; G89.4 Chronic pain syndrome; M51.26 Other intervertebral disc displacement, lumbar region; R53.81 Other malaise; R20.0 Anesthesia of skin; R79.89 Other specified abnormal findings of blood chemistry; R26.9 Unspecified abnormalities of gait and mobility; Y83.0 Surgical operation with transplant of whole organ as the cause of abnormal reaction of the patient, or of later complication, without mention of misadventure at the time of the procedure; N18.9 Chronic kidney disease, unspecified; D64.9 Anemia, unspecified; I12.9 Hypertensive chronic kidney disease with stage 1 through stage 4 chronic kidney disease, or unspecified chronic kidney disease; K59.00 Constipation, unspecified; M48.07 Spinal stenosis, lumbosacral region; Z79.899 Other long term (current) drug therapy; Z79.82 Long term (current) use of aspirin; Z71.3 Dietary counseling and surveillance
CPT/HCPCS: 36415; 80048; 82306; 82607; 82728; 82746; 83540; 83550; 83735; 84100; 84134; 84443; 90732; 93970; 97110; 97112; 97116; 97162; 97166; 97530; 97535; J7512

== ENCOUNTER 2019-01-15 12:10 | Inpatient (IN) | payer MEDICAID, MEDICARE ==
[~2019-01-15] VITALS: Ht 185.4 cm; Wt 127.0 kg
[2019-01-15 14:13] LABS: BASOPHILS % 0.9 % (0.0-2.0); EOSINOPHILS % 1.3 % (0.0-5.0); HEMATOCRIT. 36.1 % (42.0-52.0); LYMPHOCYTES % 10.6 % (20.0-50.0); MEAN CORPUSCULAR HEMOGLOBIN 31.3 pg (28.0-32.0); MEAN CORPUSCULAR VOLUME 94.4 fL (80.0-94.0); MEAN PLATELET VOLUME 8.8 fl (7.4-10.4); MONOCYTES % 7.8 % (2.0-8.0); NEUTROPHILS % 79.4 % (40.0-76.0); PLATELET 171 x1000/uL (130-400); RED BLOOD CELL COUNT 3.82 mill/uL (4.7-6.1); RED CELL DISTRIBUTION WIDTH 19.9 % (11.6-14.6)
[2019-01-15 14:20] LABS: CHLORIDE 104 mEq/L (98-107)
[2019-01-15 17:31] LABS: CLARITY URINE CLEAR (CLEAR); COLOR URINE YELLOW (YELLOW); KETONES URINE NEGATIVE (NEGATIVE); LEUKOCYTE ESTERASE URINE NEGATIVE (NEGATIVE); NITRITE URINE NEGATIVE (NEGATIVE); OCCULT BLOOD URINE NEGATIVE (NEGATIVE); PROTEIN URINE 3+ (NEGATIVE); SPECIFIC GRAVITY URINE 1.013 (1.005-1.030); UROBILINOGEN URINE 0.2 E.U./dL (0.2-1.0)
[2019-01-15 17:41] LABS: *AMPHETAMINES SCREEN URINE NEGATIVE (NEGATIVE); *BARBITURATES SCREEN URINE NEGATIVE (NEGATIVE); *BENZODIAZEPINES SCREEN URINE NEGATIVE (NEGATIVE); *COCAINE SCREEN URINE NEGATIVE (NEGATIVE)
[2019-01-15 17:42] LABS: CANNABINOID URINE SCREEN NEGATIVE (NEGATIVE); METHADONE URINE SCREEN NEGATIVE (NEGATIVE); OPIATES URINE SCREEN PRESUMTIVE POSITIVE (NEGATIVE); PHENCYCLIDINE URINE SCREEN NEGATIVE (NEGATIVE)
[2019-01-15] MEDS ORDERED: MORPHINE SULFATE 4 MG/ML CPJ (NOT FOR IM USE) IV ONE (17:45)
[2019-01-15 22:09] VITALS: BP 176/101
[2019-01-15 22:15] VITALS: BP 176/101
[2019-01-15] MEDS ORDERED: CELL2 PO (22:42)
[2019-01-15] MEDS ORDERED: GABA-529 PO (23:44)
[2019-01-15] MEDS ORDERED: FURO40TA5 PO (23:44)
[2019-01-15] MEDS ORDERED: ACETAMINOPHEN 325MG TABLET PO PRN (23:45)
[2019-01-16 00:05] VITALS: BP 171/83
[2019-01-16] MEDS: CLONIDINE 0.1MG TABLET PO SCH ×2 (00:16→08:55)
[2019-01-16 04:00] VITALS: BP 146/96
[2019-01-16 06:40] LABS: HEMATOCRIT. 32.2 % (42.0-52.0); HEMOGLOBIN. 10.4 g/dL (14.0-18.0); MEAN CORPUSCULAR HEMOGLOBIN 30.6 pg (28.0-32.0); MEAN CORPUSCULAR VOLUME 94.2 fL (80.0-94.0); MEAN PLATELET VOLUME 8.3 fl (7.4-10.4); PLATELET 139 x1000/uL (130-400); RED BLOOD CELL COUNT 3.42 mill/uL (4.7-6.1); RED CELL DISTRIBUTION WIDTH 19.3 % (11.6-14.6)
[2019-01-16] MEDS ORDERED: FUROSEMIDE 40MG TABLET PO SCH (07:15)
[2019-01-16 08:00] VITALS: BP 164/89
[2019-01-16] MEDS: GABAPENTIN 100MG CAPSULE PO SCH ×2 (08:55→13:39)
[2019-01-16] MEDS ORDERED: HEPARIN 5000 UNITS/ML VIAL SUBCUT SCH (09:00)
[2019-01-16] MEDS ORDERED: PREDNISONE 20MG TABLET PO SCH (09:00)
[2019-01-16] MEDS ORDERED: CHOLECALCIFEROL (D3) 1000 UNIT TABLET PO SCH (09:00)
[2019-01-16] MEDS ORDERED: METOPROLOL TARTRATE 25MG TABLET PO SCH (09:00)
[2019-01-16] MEDS ORDERED: COLCHICINE 0.6MG TABLET PO SCH (09:00)
[2019-01-16] MEDS ORDERED: MYCOPHENOLATE MOFETIL 250MG CAPSULE PO SCH (09:00)
[2019-01-16] MEDS ORDERED: LISINOPRIL 40MG TABLET PO SCH (09:00)
[2019-01-16] MEDS ORDERED: LOSARTAN POTASSIUM 100 MG TABLET PO SCH (09:00)
[2019-01-16] MEDS ORDERED: SODIUM BICARBONATE 650 MG TABLET PO SCH (09:00)
[2019-01-16] MEDS ORDERED: FOLIC ACID/VITAMIN B COMP W-C TABLET PO SCH ×2 (09:00)
[2019-01-16] MEDS ORDERED: AMLODIPINE 10MG TABLET PO SCH (09:00)
[2019-01-16] MEDS ORDERED: LEFLUNOMIDE 20MG TABLET PO SCH (09:00)
[2019-01-16] MEDS ORDERED: ASPIRIN 81MG EC TABLET PO SCH (09:00)
[2019-01-16 12:00] VITALS: BP 147/76
[2019-01-16 12:59] LABS: NUCLEATED RED BLOOD CELLS 2 /100 WBC; PLATELET ESTIMATE NORMAL
[2019-01-16 14:56] VITALS: BP 127/78
== END 2019-01-16 17:04 | disposition home or self-care (01) | DRG 194 ==
LOC: ER 12:10 → 7WST 19:34 → EDBEDREQ 19:45 → EDBEDREQTM 19:45 → ENRESERV 19:49 → 7WST 23:49
PROVIDERS: ADMIT Internal Medicine; ATTEND Internal Medicine
DX: I13.0 Hypertensive heart and chronic kidney disease with heart failure and stage 1 through stage 4 chronic kidney disease, or unspecified chronic kidney disease (principal); Z94.0 Kidney transplant status; D63.8 Anemia in other chronic diseases classified elsewhere; S39.012A Strain of muscle, fascia and tendon of lower back, initial encounter; F17.210 Nicotine dependence, cigarettes, uncomplicated; G89.4 Chronic pain syndrome; I50.33 Acute on chronic diastolic (congestive) heart failure; X58.XXXA Exposure to other specified factors, initial encounter; N18.9 Chronic kidney disease, unspecified; J45.909 Unspecified asthma, uncomplicated; Z60.2 Problems related to living alone; Z99.2 Dependence on renal dialysis; Y93.89 Activity, other specified; Y92.89 Other specified places as the place of occurrence of the external cause; Y99.8 Other external cause status; Z79.899 Other long term (current) drug therapy; Z79.82 Long term (current) use of aspirin
CPT/HCPCS: 36415; 71045; 80048; 80305; 81003; 83880; 84484; 93005; 96374; 99285; J1644; J2270; J7512; J7517

== ENCOUNTER 2021-03-25 15:10 | Inpatient (IN) | payer MEDICARE, MEDICAID ==
[~2021-03-25] VITALS: Ht 185.4 cm; Wt 109.8 kg
[~2021-03-25 15:10] MED LIST changes: -ASPI-1393 PO; +ASPI-1497 PO; +CELL2 PO; +FURO40TA5 PO; +GABA-529 PO; +LISI40TA13 PO; -LISI40TA4 PO
[2021-03-25] MEDS ORDERED: ALBUTEROL (0.083%) 2.5MG/3ML NEB HHN STA (15:17)
[2021-03-25] MEDS ORDERED: IPRATROPIUM BROMIDE (0.02%) 0.5MG/2.5ML NEB HHN STA (15:17)
[2021-03-25 16:41] LABS: HEMATOCRIT. 37.6 % (42.0-52.0); HEMOGLOBIN. 11.9 g/dL (14.0-18.0); MEAN CORPUSCULAR HEMOGLOBIN 27.3 pg (28.0-32.0); MEAN CORPUSCULAR VOLUME 86.1 fL (80.0-94.0); MEAN PLATELET VOLUME 8.8 fl (7.4-10.4); PLATELET 160 x1000/uL (130-400); RED BLOOD CELL COUNT 4.37 mill/uL (4.7-6.1); RED CELL DISTRIBUTION WIDTH 14.3 % (11.6-14.6)
[2021-03-25] MEDS ORDERED: MAGNESIUM/ALUMINUM HYDROXIDE/SIMETHICONE 30ML UDC PO ONE (16:45)
[2021-03-25 16:52] LABS: CHLORIDE 106 mEq/L (98-107)
[2021-03-25 17:47] LABS: PLATELET ESTIMATE NORMAL
[2021-03-25] MEDS ORDERED: PIPERACILLIN/TAZOBACTAM 3.375GM/50ML PREMIX IV ONE (18:15)
[2021-03-25] MEDS ORDERED: PIPERACILLIN/TAZ 3.375G PREMIX 50 ML IV NR (18:15)
[2021-03-25] MEDS ORDERED: SODIUM CHLORIDE 0.9% 500 ML IV NR (18:30)
[2021-03-25] MEDS ORDERED: LEFLUNOMIDE 20MG TABLET PO SCH (22:00)
[2021-03-25] MEDS ORDERED: HYDROCODONE/ACETAMINOPHEN 5/325MG TABLET PO PRN (23:00)
[2021-03-25] MEDS ORDERED: ACETAMINOPHEN 325MG TABLET PO PRN (23:00)
[2021-03-25] MEDS ORDERED: CLONIDINE 0.1MG TABLET PO PRN (23:00)
[2021-03-25] MEDS ORDERED: ONDANSETRON HCL 4MG/2ML INJ IV PRN (23:00)
[2021-03-25] MEDS ORDERED: MORPHINE SULFATE 2 MG/ML CPJ (NOT FOR IM USE) IV PRN (23:00)
[2021-03-25] MEDS ORDERED: NALOXONE HCL 0.4MG/ML VIAL IV PRN (23:15)
[2021-03-25] MEDS: SODIUM CHLORIDE 0.9% 1,000 ML IV SCH (23:30)
[2021-03-25] MEDS: CEFTRIAXONE 1 G PREMIX 50 ML IV SCH (23:30)
[2021-03-26] MEDS ORDERED: AZITHROMYCIN 500MG/250ML 250 ML IV NR (01:00)
[2021-03-26] MEDS ORDERED: PREDNISONE 5MG TABLET PO SCH (09:00)
[2021-03-26] MEDS: METOPROLOL TARTRATE 25MG TABLET PO SCH ×2 (09:00→21:00)
[2021-03-26] MEDS ORDERED: LOSARTAN POTASSIUM 50 MG TABLET PO SCH (09:00)
[2021-03-26] MEDS: CLONIDINE 0.1MG TABLET PO SCH ×2 (09:00→21:00)
[2021-03-26] MEDS: THIAMINE HCL 100MG TABLET PO SCH (09:00)
[2021-03-26] MEDS: GABAPENTIN 100MG CAPSULE PO SCH ×3 (09:00→17:48)
[2021-03-26] MEDS: ENOXAPARIN 30MG/0.3ML SYR SUBCUT SCH (09:00)
[2021-03-26] MEDS ORDERED: AMLODIPINE 10MG TABLET PO SCH (09:00)
[2021-03-26] MEDS ORDERED: DEXAMETHASONE 4MG TABLET PO SCH ×2 (09:00)
[2021-03-26] MEDS: SODIUM BICARBONATE 650 MG TABLET PO SCH ×2 (09:00→17:48)
[2021-03-26] MEDS ORDERED: MYCOPHENOLATE MOFETIL 250MG CAPSULE PO SCH (09:00)
[2021-03-26] MEDS: FOLIC ACID/VITAMIN B COMP W-C TABLET PO SCH (09:00)
[2021-03-26] MEDS: ASPIRIN 81MG EC TABLET PO SCH (09:00)
[2021-03-26] MEDS ORDERED: LISINOPRIL 40MG TABLET PO SCH ×2 (09:00→18:00)
[2021-03-26] MEDS: MYCOPHENOLATE MOFETIL 250MG CAPSULE PO SCH ×2 (09:00→21:03)
[2021-03-26] MEDS: COLCHICINE 0.6MG TABLET PO SCH (09:00)
[2021-03-26] MEDS: SODIUM CHLORIDE 0.9% 1,000 ML IV SCH ×2 (09:30→20:36)
[2021-03-26] MEDS: LEFLUNOMIDE 20MG TABLET PO SCH (09:30)
[2021-03-26 13:18] LABS: HEMATOCRIT. 34.8 % (42.0-52.0); MEAN CORPUSCULAR HEMOGLOBIN 27.2 pg (28.0-32.0); MEAN CORPUSCULAR VOLUME 86.5 fL (80.0-94.0); MEAN PLATELET VOLUME 8.1 fl (7.4-10.4); PLATELET 174 x1000/uL (130-400); RED BLOOD CELL COUNT 4.02 mill/uL (4.7-6.1); RED CELL DISTRIBUTION WIDTH 14.7 % (11.6-14.6)
[2021-03-26 14:34] LABS: PHOSPHORUS 4.8 mg/dL (2.5-4.9)
[2021-03-26 15:48] LABS: PLATELET ESTIMATE NORMAL
[2021-03-26] MEDS: METHYLPREDNISOLONE SOD SUCC 125 MG/2 ML VIAL IV SCH (22:50)
[2021-03-26] MEDS: CEFTRIAXONE 1 G PREMIX 50 ML IV SCH (22:50)
[2021-03-27 06:08] LABS: PHOSPHORUS 4.6 mg/dL (2.5-4.9)
[2021-03-27 06:10] LABS: HEMATOCRIT. 35.6 % (42.0-52.0); HEMOGLOBIN. 11.8 g/dL (14.0-18.0); MEAN CORPUSCULAR HEMOGLOBIN 28.5 pg (28.0-32.0); MEAN CORPUSCULAR VOLUME 85.9 fL (80.0-94.0); MEAN PLATELET VOLUME 7.9 fl (7.4-10.4); PLATELET 177 x1000/uL (130-400); RED BLOOD CELL COUNT 4.15 mill/uL (4.7-6.1); RED CELL DISTRIBUTION WIDTH 14.6 % (11.6-14.6)
[2021-03-27] MEDS: METHYLPREDNISOLONE SOD SUCC 125 MG/2 ML VIAL IV SCH ×3 (06:20→21:18)
[2021-03-27] MEDS: SODIUM CHLORIDE 0.9% 1,000 ML IV SCH ×2 (06:20→17:23)
[2021-03-27] MEDS ORDERED: AZITHROMYCIN 500 MG in DEXT 5% WATER 250 ML IV SCH (09:00)
[2021-03-27] MEDS: METOPROLOL TARTRATE 25MG TABLET PO SCH ×2 (09:36→21:18)
[2021-03-27] MEDS: FOLIC ACID/VITAMIN B COMP W-C TABLET PO SCH (09:36)
[2021-03-27] MEDS: CLONIDINE 0.1MG TABLET PO SCH ×2 (09:37→21:17)
[2021-03-27] MEDS: GABAPENTIN 100MG CAPSULE PO SCH ×3 (09:37→17:21)
[2021-03-27] MEDS: ASPIRIN 81MG EC TABLET PO SCH (09:37)
[2021-03-27] MEDS: THIAMINE HCL 100MG TABLET PO SCH (09:37)
[2021-03-27 10:00] VITALS: BP 130/85
[2021-03-27] MEDS: MYCOPHENOLATE MOFETIL 250MG CAPSULE PO SCH ×2 (11:40→23:00)
[2021-03-27] MEDS: COLCHICINE 0.6MG TABLET PO SCH (11:40)
[2021-03-27] MEDS: LEFLUNOMIDE 20MG TABLET PO SCH (11:40)
[2021-03-27] MEDS: ENOXAPARIN 30MG/0.3ML SYR SUBCUT SCH (11:41)
[2021-03-27 12:00] VITALS: BP 118/72
[2021-03-27] MEDS: MAGNESIUM/ALUMINUM HYDROXIDE/SIMETHICONE 30ML UDC PO PRN (13:16)
[2021-03-27] MEDS ORDERED: ZOLPIDEM TARTRATE 5MG TABLET PO PRN (15:15)
[2021-03-27 15:49] LABS: PLATELET ESTIMATE NORMAL
[2021-03-27 16:00] VITALS: BP 118/76
[2021-03-27] MEDS ORDERED: SODIUM POLYSTYRENE SULFONATE 15 G/60 ML BOT PO NR (16:30)
[2021-03-27] MEDS: SODIUM BICARBONATE 650 MG TABLET PO SCH ×2 (17:00→17:21)
[2021-03-27] MEDS: OMEPRAZOLE 20MG CAPSULE EXTENDED RELEASE PO SCH (17:21)
[2021-03-27] MEDS: CEFTRIAXONE 1,000 MG in DEXTROSE 5% WATER 50 ML IV SCH (17:23)
[2021-03-27 20:00] VITALS: BP 144/81
[2021-03-28] VITALS: BP 124/76
[2021-03-28] MEDS: SODIUM CHLORIDE 0.9% 1,000 ML IV SCH ×3 (03:24→21:55)
[2021-03-28 04:00] VITALS: BP 128/72
[2021-03-28] MEDS: OMEPRAZOLE 20MG CAPSULE EXTENDED RELEASE PO SCH (05:57)
[2021-03-28] MEDS: METHYLPREDNISOLONE SOD SUCC 125 MG/2 ML VIAL IV SCH ×3 (05:57→21:55)
[2021-03-28 08:00] VITALS: BP 161/84
[2021-03-28] MEDS: AZITHROMYCIN 500 MG in DEXT 5% WATER 250 ML IV SCH (10:47)
[2021-03-28] MEDS: SODIUM BICARBONATE 650 MG TABLET PO SCH ×2 (10:48→17:10)
[2021-03-28] MEDS: MYCOPHENOLATE MOFETIL 250MG CAPSULE PO SCH ×2 (10:48→21:55)
[2021-03-28] MEDS: GABAPENTIN 100MG CAPSULE PO SCH ×3 (10:48→17:10)
[2021-03-28] MEDS: FOLIC ACID/VITAMIN B COMP W-C TABLET PO SCH (10:48)
[2021-03-28] MEDS: ASPIRIN 81MG EC TABLET PO SCH (10:48)
[2021-03-28] MEDS: METOPROLOL TARTRATE 25MG TABLET PO SCH ×2 (10:49→21:54)
[2021-03-28] MEDS: CLONIDINE 0.1MG TABLET PO SCH ×2 (10:49→21:54)
[2021-03-28] MEDS: THIAMINE HCL 100MG TABLET PO SCH (10:50)
[2021-03-28] MEDS ORDERED: VANCOMYCIN 2,000 MG in DEXT 5% WATER 500 ML IV SCH (11:00)
[2021-03-28 12:00] VITALS: BP_SYST 113; BP_SYST 152; BP_DIAS 74; BP_DIAS 86
[2021-03-28] MEDS: MAGNESIUM/ALUMINUM HYDROXIDE/SIMETHICONE 30ML UDC PO PRN (13:23)
[2021-03-28] MEDS: ENOXAPARIN 40MG/0.4ML SYR SUBCUT SCH (13:24)
[2021-03-28] MEDS: LEFLUNOMIDE 20MG TABLET PO SCH (13:47)
[2021-03-28] MEDS ORDERED: THROAT LOZENGES-BENZOCAINE/MENTH/CETYLPYRD CL LOZENGES MM PRN (14:00)
[2021-03-28 16:00] VITALS: BP 138/75
[2021-03-28] MEDS: CEFTRIAXONE 1,000 MG in DEXTROSE 5% WATER 50 ML IV SCH (17:09)
[2021-03-28 20:00] VITALS: BP 146/81
[2021-03-29] VITALS: BP 128/71
[2021-03-29 04:00] VITALS: BP 134/73
[2021-03-29] MEDS: METHYLPREDNISOLONE SOD SUCC 125 MG/2 ML VIAL IV SCH ×3 (06:07→21:57)
[2021-03-29] MEDS: FAMOTIDINE 20MG TABLET PO SCH (06:07)
[2021-03-29] MEDS: SODIUM CHLORIDE 0.9% 1,000 ML IV SCH ×2 (06:30→17:26)
[2021-03-29 08:00] VITALS: BP 131/75
[2021-03-29 08:14] LABS: HEMATOCRIT. 26.6 % (42.0-52.0); HEMOGLOBIN. 8.9 g/dL (14.0-18.0); MEAN CORPUSCULAR HEMOGLOBIN 28.4 pg (28.0-32.0); MEAN CORPUSCULAR VOLUME 85.4 fL (80.0-94.0); MEAN PLATELET VOLUME 7.9 fl (7.4-10.4); PLATELET 183 x1000/uL (130-400); RED BLOOD CELL COUNT 3.12 mill/uL (4.7-6.1); RED CELL DISTRIBUTION WIDTH 14.5 % (11.6-14.6)
[2021-03-29] MEDS: ENOXAPARIN 40MG/0.4ML SYR SUBCUT SCH (09:00)
[2021-03-29] MEDS: AZITHROMYCIN 500 MG in DEXT 5% WATER 250 ML IV SCH (09:41)
[2021-03-29] MEDS: FOLIC ACID/VITAMIN B COMP W-C TABLET PO SCH (09:55)
[2021-03-29] MEDS: SODIUM BICARBONATE 650 MG TABLET PO SCH ×2 (09:55→17:25)
[2021-03-29] MEDS: GABAPENTIN 100MG CAPSULE PO SCH ×3 (09:56→17:25)
[2021-03-29] MEDS: THIAMINE HCL 100MG TABLET PO SCH (09:56)
[2021-03-29] MEDS: MYCOPHENOLATE MOFETIL 250MG CAPSULE PO SCH ×2 (09:56→21:56)
[2021-03-29] MEDS: ASPIRIN 81MG EC TABLET PO SCH (09:56)
[2021-03-29] MEDS: METOPROLOL TARTRATE 25MG TABLET PO SCH ×2 (09:56→21:55)
[2021-03-29] MEDS: CLONIDINE 0.1MG TABLET PO SCH ×2 (09:56→21:56)
[2021-03-29 10:58] LABS: PLATELET ESTIMATE NORMAL
[2021-03-29] MEDS: LEFLUNOMIDE 20MG TABLET PO SCH (12:25)
[2021-03-29] MEDS: CEFTRIAXONE 1,000 MG in DEXTROSE 5% WATER 50 ML IV SCH (17:42)
[2021-03-30] MEDS: SODIUM CHLORIDE 0.9% 1,000 ML IV SCH ×2 (03:39→13:15)
[2021-03-30] MEDS: FAMOTIDINE 20MG TABLET PO SCH (06:20)
[2021-03-30] MEDS: METHYLPREDNISOLONE SOD SUCC 125 MG/2 ML VIAL IV SCH ×2 (06:20→13:29)
[2021-03-30] MEDS: AZITHROMYCIN 500 MG in DEXT 5% WATER 250 ML IV SCH (09:00)
[2021-03-30] MEDS: METOPROLOL TARTRATE 25MG TABLET PO SCH (10:30)
[2021-03-30] MEDS: FOLIC ACID/VITAMIN B COMP W-C TABLET PO SCH (10:30)
[2021-03-30] MEDS: GABAPENTIN 100MG CAPSULE PO SCH ×2 (10:30→12:27)
[2021-03-30] MEDS: SODIUM BICARBONATE 650 MG TABLET PO SCH (10:30)
[2021-03-30] MEDS: CLONIDINE 0.1MG TABLET PO SCH (10:31)
[2021-03-30] MEDS: ASPIRIN 81MG EC TABLET PO SCH (10:31)
[2021-03-30] MEDS: THIAMINE HCL 100MG TABLET PO SCH (10:31)
[2021-03-30] MEDS: ENOXAPARIN 40MG/0.4ML SYR SUBCUT SCH (10:41)
[2021-03-30] MEDS: MYCOPHENOLATE MOFETIL 250MG CAPSULE PO SCH (10:41)
[2021-03-30 12:00] VITALS: BP 159/85
[2021-03-30] MEDS: LEFLUNOMIDE 20MG TABLET PO SCH (12:27)
[2021-03-30] MEDS ORDERED: VANCOMYCIN 1500MG in DEXTROSE 5% WATER 250ML IV NR (13:30)
[2021-03-30 16:00] VITALS: BP 162/72
[2021-03-30 17:43] VITALS: BP 159/75
[2021-03-31] MEDS ORDERED: LEFLUNOMIDE 20MG TABLET PO SCH (09:00)
== END 2021-03-30 18:50 | disposition home or self-care (01) | DRG 698 ==
LOC: ER 15:10 → MICUSO 19:56 → EDBEDREQTM 19:59 → EDBEDREQ 19:59 → 7EST 03-27 09:24
PROVIDERS: ADMIT Internal Medicine Nephrology; ATTEND Internal Medicine Nephrology
DX: T86.19 Other complication of kidney transplant (principal); U07.1 COVID-19; J96.00 Acute respiratory failure, unspecified whether with hypoxia or hypercapnia; N17.0 Acute kidney failure with tubular necrosis; E44.1 Mild protein-calorie malnutrition; E87.1 Hypo-osmolality and hyponatremia; R78.81 Bacteremia; I13.0 Hypertensive heart and chronic kidney disease with heart failure and stage 1 through stage 4 chronic kidney disease, or unspecified chronic kidney disease; N18.9 Chronic kidney disease, unspecified; D64.9 Anemia, unspecified; E66.9 Obesity, unspecified; E87.5 Hyperkalemia; J44.9 Chronic obstructive pulmonary disease, unspecified; R74.01 Elevation of levels of liver transaminase levels; B96.89 Other specified bacterial agents as the cause of diseases classified elsewhere; I50.9 Heart failure, unspecified; K21.9 Gastro-esophageal reflux disease without esophagitis; Y83.0 Surgical operation with transplant of whole organ as the cause of abnormal reaction of the patient, or of later complication, without mention of misadventure at the time of the procedure; Y92.89 Other specified places as the place of occurrence of the external cause; Z68.31 Body mass index [BMI] 31.0-31.9, adult; Z79.899 Other long term (current) drug therapy; Z79.52 Long term (current) use of systemic steroids; Z79.82 Long term (current) use of aspirin; Z87.440 Personal history of urinary (tract) infections
CPT/HCPCS: 36415; 71045; 80048; 80053; 80202; 83605; 83735; 83880; 84100; 84145; 84484; 85025; 87426; 93005; 93976; 99285; C1893; J0456; J0696; J1650; J2543; J2930; J3370; J7060; J7512; J7517